=== PATIENT | male | born 1955 | race African-American/Black ===

== ENCOUNTER 2019-06-21 03:59 | Emergency (ER) | payer MEDICAID ==
[~2019-06-21] VITALS: Ht 182.9 cm; Wt 100.0 kg
[2019-06-21] MEDS ORDERED: KETOROLAC 30MG/ML VIAL IV ONE (07:15)
[2019-06-21 14:38] VITALS: BP 140/80
== END 2019-06-21 14:39 | disposition home or self-care (01) ==
LOC: ER 03:59
DX: S39.012A Strain of muscle, fascia and tendon of lower back, initial encounter (principal); E11.9 Type 2 diabetes mellitus without complications; I10 Essential (primary) hypertension; Z59.0 Homelessness; Z88.2 Allergy status to sulfonamides; W01.0XXA Fall on same level from slipping, tripping and stumbling without subsequent striking against object, initial encounter; Y93.89 Activity, other specified; Y92.488 Other paved roadways as the place of occurrence of the external cause
CPT/HCPCS: 72100; 96374; 99283; J1885

== ENCOUNTER 2019-11-05 00:26 | Emergency (ER) | payer MEDICAID ==
[~2019-11-05] VITALS: Ht 175.3 cm; Wt 84.0 kg
[2019-11-05] MEDS ORDERED: ACETAMINOPHEN 325MG TABLET PO ONE (02:30)
[2019-11-05 08:00] VITALS: BP 135/82
== END 2019-11-05 10:30 | disposition home or self-care (01) ==
LOC: ER 00:26
DX: R51 Headache (principal); E11.9 Type 2 diabetes mellitus without complications; I10 Essential (primary) hypertension; Z98.890 Other specified postprocedural states; Z88.2 Allergy status to sulfonamides
CPT/HCPCS: 99285